=== PATIENT | male | born 1975 | race Caucasian/White ===

== ENCOUNTER 2017-06-08 10:02 | Emergency (ER) | payer BC, SELFPAY ==
[2017-06-08] MEDS ORDERED: Morphine 4 MG/ML Carpuject ONE (10:23)
[2017-06-08] MEDS ORDERED: Ondansetron HCl/PF 4 MG/2 ML Vial ONE (10:23)
[2017-06-08 10:24] LABS: Bilirubin Small (Negative); Blood, Urine Large (Negative); Clarity Clear (Clear); Glucose, Urine (Dipstick) Negative (Negative); Leukocyte Negative (Negative); Nitrite Negative (Negative); Protein, Urine (Dipstick) 100 mg/dL (Neg-Trace); Specific Gravity, Urine 1.025 (1.005-1.030); Urobilinogen 0.2 mg/dL (0.2-1.0); pH, Urine 5.5 (5.0-9.0)
[2017-06-08 10:33] LABS: RBC/HPF GREATER THAN 50-TNTC HPF (0-3); Squamous Epithelial None Seen HPF (0-3); WBC/HPF 0-3 HPF (0-3)
[2017-06-08 10:34] LABS: Bacteria/HPF Rare-Few HPF (None Seen)
[2017-06-08 11:13] LABS: ALT (SGPT) 16 U/L (8-55); AST (SGOT) 15 U/L (5-34); Albumin 4.2 g/dL (3.5-5.0); Alkaline Phosphatase 73 U/L (40-150); Anion Gap 15 mmol/L (10-20); BUN (Urea Nitrogen) 9 mg/dL (8.9-20.6); Bilirubin, Total 0.7 mg/dL (0.2-1.2); Calc. Creatinine Clearance 0 mL/min (70-130); Calcium 9.3 mg/dL (7.8-10.44); Carbon Dioxide 21 mmol/L (22-29); Chloride 109 mmol/L (98-107); Estimated GFR-MDRD Greater than 90; Globulin 2.5 g/dL (2.4-3.5); Glucose 148 mg/dL (70-105); Lipase 15 U/L (8-78); Potassium 3.6 mmol/L (3.5-5.1); Protein, Total 6.7 g/dL (6.0-8.3); Sodium 141 mmol/L (136-145)
--- NOTE | 2017-06-08 11:32 | CT ---
ABDOMEN CT WITHOUT CONTRAST PELVIC CT WITHOUT CONTRAST: Comparison: 10-23-12 History: Left flank pain. Technique: An abdomen and pelvic CT is performed without IV contrast. Coronal reformatted images are submitted for interpretation. FINDINGS: ABDOMEN CT: Lung bases are clear. Normal heart size. No pericardial effusion. The descending thoracic aorta and a bdominal aorta are of normal caliber. No periaortic fat stranding. Gallbladder is surgically absent. Symmetric attenuation of the psoas muscles. No retroperitoneal mass, lymphadenopathy, or hematoma. There are scattered surgical clips about the anterior abdominal mesentery, similar to the prior exami nation. Limited evaluation of the solid organs by the lack of IV contrast. Grossly the liver, spleen, pancrea s and adrenal glands are unremarkable. Limited evaluation of the alimentary canal due to lack of oral contrast. Diverticulosis in the left h emicolon. No diverticulitis. There appears to be partial resection of the right colon and proximal mi d transverse colon. With regard to the right kidney, no evidence of obstructive uropathy. Right ureter is unremarkable. With regard to the left kidney, there is mild obstructive uropathy secondary to an 8 mm calcification in the left ureteropelvic junction/proximal left ureter. There is a nonobstructing calculus in the l ower pole of the left kidney measuring 5 mm. The remainder of the left extrarenal collecting system i s unremarkable. PELVIC CT: No mass, lymphadenopathy, free air, or free fluid. Urinary bladder is decompressed. There are no lytic or blastic lesion in the osseous structures. IMPRESSION: 1. Mild left sided obstructive uropathy secondary to an 8 mm calculus in the left ureteropelvic junct ion. 2. Nonobstructing calculus in the lower pole of the left kidney. POS: [facility]
[2017-06-08 12:04] LABS: #Basophils 0.2 thou/uL (0.0-0.2); #Eosinphils 0.2 thou/uL (0.0-0.7); #Lymphocytes 3.3 thou/uL (1.20-3.40); #Monocytes 0.6 thou/uL (0.11-0.59); #Neutrophils 7.7 thou/uL (1.40-6.50); %Basophils 1.6 % (0.0-1.0); %Eosinophils 1.4 % (0.0-10.0); %Lymphocytes 27.6 % (21.0-51.0); %Monocytes 4.6 % (0.0-10.0); %Neutrophils 64.8 % (42.0-75.0); Hemoglobin 16.7 g/dL (14.0-18.0); Mean Corpuscular HGB CONC 35.6 g/dL (32.0-36.0); Mean Corpuscular Hemoglobin 29.9 pg (27.0-31.0); Mean Corpuscular Volume 84.2 fl (80.0-94.0); Platelet Count 279 thou/uL (130-400); RBC Distribution Width 11.6 % (11.5-14.5); Red Blood Cell (RBC) Count 5.57 mill/uL (4.70-6.10); White Blood Cell (WBC) Count 11.9 thou/uL (4.8-10.8)
== END 2017-06-08 11:35 | disposition home or self-care (01) ==
LOC: SCSER 10:02
DX: N20.2 Calculus of kidney with calculus of ureter (principal); K57.30 Diverticulosis of large intestine without perforation or abscess without bleeding; I10 Essential (primary) hypertension; F31.9 Bipolar disorder, unspecified; F17.210 Nicotine dependence, cigarettes, uncomplicated; Z71.6 Tobacco abuse counseling
CPT/HCPCS: 74176; 80053; 81003; 81015; 83690; 85025; 87086; 96361; 96374; 96375; 99406; J2270; J2405

== ENCOUNTER 2017-06-14 10:32 | Day surgery (SDC) | payer SELFPAY ==
[2017-06-14 11:57] LABS: Hemoglobin 14.6 g/dL (14.0-18.0); Mean Corpuscular Hemoglobin 28.5 pg (27.0-31.0); Mean Corpuscular Volume 83.8 fl (80.0-94.0); Mean Platelet Volume 7.7 fL (7.4-10.4); Platelet Count 273 thou/uL (130-400); RBC Distribution Width 11.3 % (11.5-14.5); Red Blood Cell (RBC) Count 5.11 mill/uL (4.70-6.10); White Blood Cell (WBC) Count 9.4 thou/uL (4.8-10.8)
[2017-06-14 12:01] LABS: ALT (SGPT) 17 U/L (8-55); AST (SGOT) 16 U/L (5-34); Albumin 3.8 g/dL (3.5-5.0); Alkaline Phosphatase 69 U/L (40-150); Anion Gap 15 mmol/L (10-20); BUN (Urea Nitrogen) 13 mg/dL (8.9-20.6); Bilirubin, Total 0.3 mg/dL (0.2-1.2); Calc. Creatinine Clearance 0 mL/min (70-130); Calcium 9.3 mg/dL (7.8-10.44); Carbon Dioxide 21 mmol/L (22-29); Chloride 110 mmol/L (98-107); Estimated GFR-MDRD 54; Globulin 2.6 g/dL (2.4-3.5); Glucose 94 mg/dL (70-105); Lipase 15 U/L (8-78); Potassium 3.6 mmol/L (3.5-5.1); Protein, Total 6.4 g/dL (6.0-8.3); Sodium 142 mmol/L (136-145)
[2017-06-14 12:10] LABS: Eosinophils 1 % (0-10); Lymphocytes 22 % (21-51); MDiff Complete? YES; Monocytes 6 % (0-10); Neutrophil 70 % (42-75); PLT Morphology Comment Appears Adequate; RBC Morphology Normal
[2017-06-14 12:31] LABS: Bilirubin Negative (Negative); Blood, Urine Small (Negative); Clarity Clear (Clear); Glucose, Urine (Dipstick) Negative (Negative); Leukocyte Negative (Negative); Nitrite Negative (Negative); Protein, Urine (Dipstick) Negative (Neg-Trace); Urobilinogen 0.2 mg/dL (0.2-1.0); pH, Urine 6.5 (5.0-9.0)
[2017-06-14 12:39] LABS: Bacteria/HPF None Seen HPF (None Seen); RBC/HPF 0-3 HPF (0-3); Squamous Epithelial None Seen HPF (0-3); WBC/HPF 0-3 HPF (0-3)
[2017-06-14] MEDS ORDERED: ePHEDrine/0.9% NaCl/PF SYRINGE 50 mg/10 ml ONE (14:10)
[2017-06-14] MEDS ORDERED: Lidocaine 1% PF 5 ML VIAL ONE (14:10)
[2017-06-14] MEDS ORDERED: PROPOFOL 200 MG/20 ML VIAL ONE (14:10)
[2017-06-14] MEDS ORDERED: Ondansetron HCl/PF 4 MG/2 ML Vial ONE (14:10)
[2017-06-14] MEDS ORDERED: Dexamethasone 20 MG/5 ML VIAL ONE (14:10)
[2017-06-14] MEDS ORDERED: B & O ONE (15:37)
[2017-06-14] MEDS ORDERED: Iothalamate Meglumine 60% 50 ML VIAL FS ONE (15:37)
[2017-06-14] MEDS ORDERED: Fentanyl 100 MCG/2 ML VIAL ONE (15:38)
[2017-06-14] MEDS ORDERED: HYDROmorphone 0.5 MG/0.5 ML SYRINGE ONE (15:38)
[2017-06-14] MEDS ORDERED: Levofloxacin 500 mg/D5W 100 ml Premix Bag ONE (16:59)
--- NOTE | 2017-06-14 17:56 | RAD ---
SINGLE VIEW FROM RETROGRADE IVP: Date: 06/14/17 INDICATION: Stent placement. COMPARISON: Exam is compared to CT of abdomen and pelvis dated 06/08/17. FINDINGS: The previously seen left proximal ureteral stone is not demonstrated. There is a left ureteral stent in place. The nonobstructed calculi within the left kidney are not seen. There are scattered surgical clips. IMPRESSION: Interval removal of previously seen left ureteral calculus and left nephrolithiasis. There is interva l placement of a left ureteral stent that projects in the expected position. POS: [facility]
[2017-06-14] MEDS ORDERED: HYDROcodone/Acetaminophen 5/325 mg Tablet ONE (18:27)
--- NOTE | 2017-06-14 18:59 | OP ---
DATE OF PROCEDURE: 06/14/2017 SERVICE: Urology. SURGEON: Thomas Ramirez M.D. PREOPERATIVE DIAGNOSES: Left renal and ureteral stone. POSTOPERATIVE DIAGNOSES: Left renal and ureteral stone. PROCEDURE PERFORMED: Cystoscopy with left ureteral stent placement, 6 x 28 double-J stent. INDICATIONS FOR PROCEDURE: Mr. Calle is a 41-year-old white male, who presented to the ER on Wed with complaints of left flank pain. A CT demonstrated an 8.5 mm left UPJ stone with an addition al lower pole 5 mm stone. He was discharged home to be scheduled for followup with the urologist; kvng cordova, his pain was not well controlled and he returned to the ER today. Since it is his second visi t and his creatinine was a little elevated at 1.43, we have elected to go forward with urgent stent p lacement. Risks and benefits have been discussed and he has agreed to proceed forward. DESCRIPTION OF PROCEDURE: After identification of arm band and verification of consent, the patient was brought back to the operating room where he underwent general anesthesia with LMA. He was then p laced in the dorsal lithotomy position and prepped and draped in usual sterile fashion. After approp riate timeout, a lubricated 22-Latvian rigid cystoscope was introduced per urethra into the bladder. The prostate was not hypertrophic or obstructive and the bladder was unremarkable. Attention was tur jeanie to the left ureteral orifice, which was intubated with a 0.035 sensor wire up to the level of the renal pelvis. A 6 x 28 double-J stent was advanced over the sensor wire up to the level of the miguel l pelvis and the sensor wire removed leaving a good curl in the pelvis and good curl in the bladder. The bladder was then emptied and the cystoscope removed. The patient was then awakened and taken to PACU for recovery in stable condition. COMPLICATIONS: None. ESTIMATED BLOOD LOSS: Minimal. RETAINED TUBES AND DRAINS: A 6 x 28 double-J stent on the left. SPECIMENS: None. DISPOSITION: The patient will be discharged home and will be scheduled for ureteroscopy and laser li thotripsy in the future for removal of both stones as that is the decision he has made to proceed for [place].
== END 2017-06-14 19:06 | disposition home or self-care (01) ==
LOC: SCSER 10:32 → SDC 14:18
PROVIDERS: ATTEND Urology
PROC: 0T9780Z Drainage of Left Ureter with Drainage Device, Via Natural or Artificial Opening Endoscopic (ICD-10-PCS; principal; 2017-06-14)
DX: N20.2 Calculus of kidney with calculus of ureter (principal); I10 Essential (primary) hypertension; F41.9 Anxiety disorder, unspecified; F17.210 Nicotine dependence, cigarettes, uncomplicated; Z79.1 Long term (current) use of non-steroidal anti-inflammatories (NSAID); Z79.899 Other long term (current) drug therapy
CPT/HCPCS: 74420; 80053; 81003; 81015; 83690; 85025; 96365; C1758; C1769; J1100; J1170; J1956; J2001; J2405; J2704; J3010; Q9961

== ENCOUNTER 2017-06-21 11:46 | Outpatient (CLI) | payer SELFPAY ==
[2017-06-21 13:40] LABS: Hemoglobin 18.5 g/dL (14.0-18.0); Mean Corpuscular HGB CONC 33.5 g/dL (32.0-36.0); Mean Corpuscular Hemoglobin 29.6 pg (27.0-31.0); Mean Corpuscular Volume 88.2 fl (80.0-94.0); Mean Platelet Volume 6.9 fL (7.4-10.4); Platelet Count 377 thou/uL (130-400); RBC Distribution Width 12.6 % (11.5-14.5); Red Blood Cell (RBC) Count 6.27 mill/uL (4.70-6.10); White Blood Cell (WBC) Count 12.2 thou/uL (4.8-10.8)
[2017-06-21 13:47] LABS: Bilirubin Negative (Negative); Blood, Urine Large (Negative); Clarity CLOUDY (Clear); Glucose, Urine (Dipstick) Negative (Negative); Leukocyte Trace (Negative); Nitrite Negative (Negative); Protein, Urine (Dipstick) 30 mg/dL (Neg-Trace); Specific Gravity, Urine 1.008 (1.002-1.036); Urobilinogen 0.2 mg/dL (0.2-1.0); pH, Urine 6.5 (5.0-9.0)
[2017-06-21 13:50] LABS: Bacteria/HPF None Seen HPF (None Seen); Hyaline Casts/LPF 0-3 HYALINE CAST LPF (0-3 Hyaline); Pathc Cast-AUWi Flag 0.13 (0-2.49); RBC/HPF GREATER THAN 50-TNTC HPF (0-3); Squamous Epithelial None Seen HPF (0-3); WBC/HPF 0-3 HPF (0-3)
[2017-06-21 13:57] LABS: INR-International Normal Ratio 0.9; PTT 29.8 SEC (22.9-36.1); Prothrombin Time 12.5 SEC (12.0-14.7)
[2017-06-21 14:06] LABS: Anion Gap 13 mmol/L (10-20); BUN (Urea Nitrogen) 15 mg/dL (8.9-20.6); Calc. Creatinine Clearance 0 mL/min (70-130); Calcium 9.9 mg/dL (7.8-10.44); Carbon Dioxide 23 mmol/L (22-29); Chloride 104 mmol/L (98-107); Estimated GFR-MDRD 79; Glucose 101 mg/dL (70-105); Potassium 3.7 mmol/L (3.5-5.1); Sodium 136 mmol/L (136-145)
--- NOTE | 2017-06-21 17:16 | EKG ---
Test Reason : Blood Pressure : / mmHG Vent. Rate : 083 BPM Atrial Rate : 083 BPM P-R Int : 146 ms QRS Dur : 086 ms QT Int : 380 ms P-R-T Axes : 073 119 065 degrees QTc Int : 446 ms Normal sinus rhythm Right axis deviation Poor anterior R wave progression Abnormal ECG When compared with ECG of 15-NOV-2011 16:02, No significant change was found Confirmed by DR. Dago SILVESTRE ([id number]) on 06/21/2017 5:16:10 PM Referred By: CELIA Confirmed By:DR. Dago SILVESTRE
== END 2017-06-21 11:47 | disposition home or self-care (01) ==
LOC: LABBT 11:46
PROVIDERS: ATTEND Urology
DX: Z01.810 Encounter for preprocedural cardiovascular examination (principal)
CPT/HCPCS: 80048; 81001; 85027; 85610; 85730; 87086; 93005; 93010

== ENCOUNTER 2017-06-22 11:32 | Day surgery (SDC) | payer SELFPAY ==
[2017-06-21 13:28] VITALS: BMI 27.1
[2017-06-22] MEDS ORDERED: Levofloxacin 500 mg/D5W 100 ml Premix Bag ONE (11:58)
[2017-06-22] MEDS ORDERED: Fentanyl 100 MCG/2 ML VIAL ONE (12:33)
[2017-06-22] MEDS ORDERED: cefTRIAXone\\ROCEPHIN 1 GM, Syringe 0.4 ML in Sterile Water 9.6 ML SLOW IVP SCH (13:00)
--- NOTE | 2017-06-22 14:04 | OP ---
DATE OF SURGERY: 06/22/2017 SERVICE: Urology. SURGEON: Thomas Ramirez M.D. PREOPERATIVE DIAGNOSES: Left ureteral and renal stone. POSTOPERATIVE DIAGNOSIS: Left renal stone. PROCEDURE PERFORMED: Cystoscopy with left ureteroscopy, laser lithotripsy, basket extraction of ston es and replacement of a 6 x 28 double-J stent with string attached. INDICATIONS FOR PROCEDURE: Mr. Calle is a 41-year-old white male who initially had seen nd for l eft-sided stone with elevated creatinine and significant flank pain. He underwent a stent at that [facility] and is now coming in for definitive treatment. All risks and benefits of surgery have been discus sed and he has agreed to proceed forward. DESCRIPTION OF PROCEDURE: After identification of armband and verification of consent, the patient w as brought back to the operating room where he underwent general anesthesia with endotracheal intubat ion. He was then placed in dorsal lithotomy position and prepped and draped in usual sterile fashion . After appropriate timeout, lubricated 22 Tanzanian rigid cystoscope was introduced per urethra into t he bladder. The prostate was mildly hypertrophic. The bladder was relatively unremarkable other laureano n the stent was seen emanating from the left ureteral orifice with a standard surrounding bullous romel ma. The stent was grasped with flexible graspers and removed to the level of the urethral meatus. T he cystoscope was then removed and a 0.035 sensor-tip wire was advanced through the ureteral stent up to the level of the renal pelvis. The stent was then removed and discarded. A dual-lumen catheter was then advanced over the sensor wire up to the level of the proximal ureter. An Amplatz Super Stif f wire was then placed through the second lumen up to the level of the renal pelvis. The dual-lumen was then removed and the sensor wire affixed to the drapes as a safety wire. Initially, a 13/15 Fren ch x 42 cm ureteral access sheath was attempted to pass through the ureter over the Super Stiff wire, but the sheath was too fat. Therefore, we elected to switch to a thinner sheath and switched to the 12/14 ureteral access sheath. This one was able to be passed with a little bit of difficulty, but d id go up into the proximal ureter. The inner cannula and the Super Stiff wire were then removed and a flexible digital ureteroscope was brought in through the ureteral access sheath and brought up into the level of the proximal ureter and then into the kidney. The stone was not seen within the ureter and there was a significant amount of blood clot within the kidney, the clots precluded a proper exa mination of the calices and renal pelvis. Therefore, the clots had to be basket extracted and remove d for proper visualization. At this point, the 8 mm stone was encountered buried underneath a signif icant amount of clot. The additional 5 mm stone in the lower pole was actually fragmented into multi ple pieces. Some of this was irrigated out and some was able to be basketed out. The 200 micron las er fiber was then brought in and used to fragment 8 mm stone into small pieces. The remaining pieces were then extracted with the 1.9 Tanzanian 0 tip nitinol basket. Upon completion, there were no fragme nts seen over 1 mm. There was a significant amount of dust debris within the kidney, which it is how the stone was treated via dusting fragmentation. A full pyeloscopy did not demonstrate any addition al urolithiasis over 1 mm in size. Pull back ureteroscopy was then employed through the ureter and n o additional stones were seen within the ureter. Satisfied the stones were treated. The ureteroscop e and sheath were then removed. The cystoscope was then backloaded back into the bladder over the Se nsor wire and a 6 x 28 double-J stent with a string attached was advanced over the wire up to the lev el of the renal pelvis. The wire was then removed leaving a good curl in the renal pelvis and good c url in the bladder. The bladder was then emptied and the cystoscope removed. The patient had his st ring affixed to the penis with an Op-Site. He was then awakened and taken to PACU for recovery in st able condition. COMPLICATIONS: None. ESTIMATED BLOOD LOSS: Minimal. RETAINED TUBES AND DRAINS: A 6 x 28 double-J stent on the left with the string still attached. SPECIMENS: Stone for stone analysis. DISPOSITION: Patient will be discharged home and instructed to remove his stent on Wednesday by pulling on the string. He will then follow up with me that week for a postop check.
== END 2017-06-22 16:20 | disposition home or self-care (01) ==
LOC: SDC 11:32
PROVIDERS: ATTEND Urology
PROC: 0T778DZ Dilation of Left Ureter with Intraluminal Device, Via Natural or Artificial Opening Endoscopic (ICD-10-PCS; principal; 2017-06-22)
PROC: 0TF48ZZ Fragmentation in Left Kidney Pelvis, Via Natural or Artificial Opening Endoscopic (ICD-10-PCS; principal; 2017-06-22)
DX: N20.0 Calculus of kidney (principal); G43.109 Migraine with aura, not intractable, without status migrainosus; M54.2 Cervicalgia; G89.29 Other chronic pain; I10 Essential (primary) hypertension; G47.30 Sleep apnea, unspecified; E78.2 Mixed hyperlipidemia; F17.200 Nicotine dependence, unspecified, uncomplicated; F39 Unspecified mood [affective] disorder; Z79.899 Other long term (current) drug therapy; Z88.8 Allergy status to other drugs, medicaments and biological substances; Z96.0 Presence of urogenital implants
CPT/HCPCS: 76000; 82365; 88300; A4216; C1769; J0696; J1956; J3010

== ENCOUNTER 2019-06-29 16:11 | Emergency (ER) | payer BC | END 2019-06-29 17:34 | disposition home or self-care (01) | LOC: ERS 16:11 | DX: M10.9 Gout, unspecified (principal); I10 Essential (primary) hypertension; F31.9 Bipolar disorder, unspecified; F17.210 Nicotine dependence, cigarettes, uncomplicated; F41.9 Anxiety disorder, unspecified | CPT/HCPCS: 99283 ==

== ENCOUNTER 2024-11-27 12:12 | Inpatient (IN) | payer OTHER ==
[~2024-11-27 12:12] MED LIST: Iopamidol-370 76% 500 ML MDV (1 ML CHARGE) ONE
[2024-11-27 13:27] LABS: #Basophils 0.08 10x3/uL (0.0-0.2); #Eosinophils 0.05 10x3/uL (0.0-0.7); #Monocytes 0.75 10x3/uL (0.11-0.59); #Neutrophils 7.16 10x3/uL (1.40-6.50); %Basophils 0.8 % (0.0-1.0); %Eosinophils 0.5 % (0.0-10.0); %Lymphocytes 22.4 % (21.0-51.0); %Monocytes 7.2 % (0.0-10.0); %Neutrophils 68.9 % (42.0-75.0); Hematocrit 46.0 % (42.0-52.0); Hemoglobin 16.1 g/dL (14.0-18.0); Mean Corpuscular Hemoglobin 28.8 pg (27.0-31.0); Mean Corpuscular Volume 82.3 fL (78.0-98.0); Platelet Count 265 10x3/uL (130-400); Red Blood Cell (RBC) Count 5.59 mill/uL (4.70-6.10); White Blood Cell (WBC) Count 10.39 10x3/uL (4.8-10.8)
[2024-11-27 13:46] LABS: ALT (SGPT) 15 U/L (Less than 45); AST (SGOT) 19 U/L (11-34); Albumin 4.2 g/dL (3.1-4.5); Alkaline Phosphatase 71 U/L (40-110); Anion Gap 16 mmol/L (10-20); BUN (Urea Nitrogen) 10 mg/dL (8.9-20.6); Bilirubin, Total 0.6 mg/dL (0.3-1.2); Calc. Creatinine Clearance 0 mL/min (70-130); Calcium 9.6 mg/dL (7.8-10.44); Carbon Dioxide 23 mmol/L (22-29); Chloride 105 mmol/L (98-107); Globulin 2.8 g/dL (2.4-3.5); Glucose 93 mg/dL (70-105); Potassium 3.1 mmol/L (3.5-5.1); Sodium 141 mmol/L (136-145)
[2024-11-27 13:48] LABS: Troponin I 0.066 ng/mL (< 0.028)
[2024-11-27] MEDS ORDERED: Senokot S 8.6-50 MG TAB PO PRN (16:41)
[2024-11-27] MEDS ORDERED: Ondansetron PF 4 MG/2 ML Vial IVP PRN (16:41)
[2024-11-27] MEDS ORDERED: Acetaminophen 325 MG TAB PO PRN (16:41)
[2024-11-27] MEDS ORDERED: Melatonin 3 MG TAB PO PRN (16:41)
[2024-11-27] MEDS ORDERED: Electrolyte Replacement Protocol 1 EACH FS SCH (16:45)
[2024-11-27] MEDS ORDERED: Aspirin Chewable 81 MG TAB ONE (17:17)
[2024-11-27 17:21] LABS: Troponin I 0.077 ng/mL (< 0.028)
[2024-11-27 19:41] VITALS: BMI 25.1
[2024-11-27 21:15] LABS: Troponin I 0.075 ng/mL (< 0.028)
[2024-11-28 04:44] LABS: #Basophils 0.11 10x3/uL (0.0-0.2); #Eosinophils 0.33 10x3/uL (0.0-0.7); #Monocytes 0.75 10x3/uL (0.11-0.59); #Neutrophils 6.48 10x3/uL (1.40-6.50); %Basophils 1.1 % (0.0-1.0); %Eosinophils 3.3 % (0.0-10.0); %Lymphocytes 22.1 % (21.0-51.0); %Monocytes 7.6 % (0.0-10.0); %Neutrophils 65.6 % (42.0-75.0); Hematocrit 42.5 % (42.0-52.0); Hemoglobin 14.6 g/dL (14.0-18.0); Mean Corpuscular Hemoglobin 28.6 pg (27.0-31.0); Mean Corpuscular Volume 83.2 fL (78.0-98.0); Platelet Count 230 10x3/uL (130-400); Red Blood Cell (RBC) Count 5.11 mill/uL (4.70-6.10); White Blood Cell (WBC) Count 9.88 10x3/uL (4.8-10.8)
[2024-11-28 05:02] LABS: Anion Gap 11 mmol/L (10-20); BUN (Urea Nitrogen) 10 mg/dL (8.9-20.6); Calc. Creatinine Clearance 113 mL/min (70-130); Calcium 8.7 mg/dL (7.8-10.44); Carbon Dioxide 25 mmol/L (22-29); Chloride 109 mmol/L (98-107); Glucose 124 mg/dL (70-105); Potassium 3.1 mmol/L (3.5-5.1); Sodium 142 mmol/L (136-145)
[2024-11-28] MEDS: Aspirin Chewable 81 MG TAB PO SCH (09:13)
[2024-11-28] MEDS: Losartan 25 MG TAB PO SCH ×2 (21:06→21:08)
[2024-11-29 04:52] LABS: #Basophils 0.11 10x3/uL (0.0-0.2); #Eosinophils 0.31 10x3/uL (0.0-0.7); #Monocytes 0.73 10x3/uL (0.11-0.59); #Neutrophils 6.51 10x3/uL (1.40-6.50); %Basophils 1.0 % (0.0-1.0); %Eosinophils 2.9 % (0.0-10.0); %Lymphocytes 27.0 % (21.0-51.0); %Monocytes 6.9 % (0.0-10.0); %Neutrophils 61.9 % (42.0-75.0); Hematocrit 41.6 % (42.0-52.0); Hemoglobin 14.6 g/dL (14.0-18.0); Mean Corpuscular Hemoglobin 29.0 pg (27.0-31.0); Mean Corpuscular Volume 82.7 fL (78.0-98.0); Platelet Count 225 10x3/uL (130-400); Red Blood Cell (RBC) Count 5.03 mill/uL (4.70-6.10); White Blood Cell (WBC) Count 10.53 10x3/uL (4.8-10.8)
[2024-11-29 04:56] LABS: Anion Gap 12 mmol/L (10-20); BUN (Urea Nitrogen) 8 mg/dL (8.9-20.6); Calc. Creatinine Clearance 122 mL/min (70-130); Calcium 8.8 mg/dL (7.8-10.44); Carbon Dioxide 23 mmol/L (22-29); Chloride 107 mmol/L (98-107); Glucose 106 mg/dL (70-105); Potassium 3.1 mmol/L (3.5-5.1); Sodium 139 mmol/L (136-145)
[2024-11-29 08:37] LABS: Magnesium 1.9 mg/dL (1.6-2.6)
[2024-11-29] MEDS ORDERED: PROPOFOL 200 MG/20 ML VIAL ONE (08:51)
[2024-11-29] MEDS ORDERED: Lidocaine 1% PF 5 ML VIAL ONE (08:51)
[2024-11-29] MEDS ORDERED: PROPOFOL 20 ML ONE (08:59)
[2024-11-29] MEDS ORDERED: Magnesium 2 GM/50 ML(in water) 2 GM in Premix 1 BAG IVPB SCH (09:00)
[2024-11-29] MEDS ORDERED: Potassium Bicarbonate/Cit Ac 20 MEQ TAB PO SCH (10:15)
[2024-11-29] MEDS: Magnesium 2 GM/50 ML(in water) 2 GM in Premix 1 BAG IVPB SCH (12:16)
[2024-11-29] MEDS: NIFEdipine XL 60 MG ER.TAB PO SCH (17:25)
[2024-11-30 05:16] LABS: Anion Gap 13 mmol/L (10-20); BUN (Urea Nitrogen) 11 mg/dL (8.9-20.6); Calc. Creatinine Clearance 110 mL/min (70-130); Calcium 9.1 mg/dL (7.8-10.44); Carbon Dioxide 22 mmol/L (22-29); Chloride 108 mmol/L (98-107); Glucose 102 mg/dL (70-105); Potassium 3.6 mmol/L (3.5-5.1); Sodium 139 mmol/L (136-145)
[2024-11-30 08:35] VITALS: BP 180/94; TEMP 98
[2024-11-30] MEDS: NIFEdipine XL 30 MG ER.TAB PO SCH (08:50)
[2024-11-30] MEDS: Aspirin 325 MG TAB PO SCH (08:50)
[2024-11-30] MEDS ORDERED: NIFEdipine XL 60 MG ER.TAB PO SCH (09:00)
== END 2024-11-30 12:13 | disposition home or self-care (01) | DRG 149 ==
LOC: ERS 12:12 → 2NO 16:38 → OBSVTOIN 11-28 14:02
PROVIDERS: ADMIT Hospitalist; ATTEND Internal Medicine
PROC: B24BZZ4 Ultrasonography of Heart with Aorta, Transesophageal (ICD-10-PCS; principal; 2024-11-29)
DX: R42 Dizziness and giddiness (principal); Q21.12 Patent foramen ovale; I10 Essential (primary) hypertension; F41.9 Anxiety disorder, unspecified; F31.9 Bipolar disorder, unspecified; F10.90 Alcohol use, unspecified, uncomplicated; F17.210 Nicotine dependence, cigarettes, uncomplicated; F17.290 Nicotine dependence, other tobacco product, uncomplicated; R79.89 Other specified abnormal findings of blood chemistry; E87.6 Hypokalemia; Z98.890 Other specified postprocedural states; Z79.899 Other long term (current) drug therapy; Z79.82 Long term (current) use of aspirin; Z86.73 Personal history of transient ischemic attack (TIA), and cerebral infarction without residual deficits; Z79.02 Long term (current) use of antithrombotics/antiplatelets
CPT/HCPCS: 36415; 70450; 70496; 70498; 71045; 78452; 80048; 80053; 83735; 84443; 84484; 85025; 93005; 93017; 93312; A9502; J2704; J2785; J3475; Q9967